=== PATIENT | male | born 1995 | race Caucasian/White ===

== ENCOUNTER 2019-06-19 18:07 | Emergency (ER) | payer MEDICAID ==
--- NOTE | 2019-06-19 18:33 | EDM.PDOCBH ---
ED HPI GENERAL MEDICAL PROBLEM - General Chief Complaint: Drug or Alcohol Abuse Stated Complaint: MEDICAL [facility]IA [facility] Time Seen by Provider: 06/19/19 18:15 Source of Information: Reports: Patient, EMS History Limitations: Reports: No Limitations - History of Present Illness INITIAL COMMENTS - FREE TEXT/NARRATIVE: 23 yo male with a methamphetamine abuse problem and who is apparently homeless and out of money presents via EMS requesting detox for his meth habit/ addiction. Denies use of other drugs. Denies any medical problems. Has been in [facility] lately. Onset: Unknown/Unsure Duration: Chronic, Waxing/Waning Location: Reports: Generalized Quality: Reports: Other (no pain reported) Severity: Moderate Improves with: Reports: Other (drug abstinence) Worsens with: Reports: Other (drug use) Context: Reports: Other (see HPI) Associated Symptoms: Reports: No Other Symptoms Treatments BUN ICER: Reports: Other (see below) (none) - Related Data Allergies Allergy/AdvReac Type Severity Reaction Status Date / Time No Known Allergies Allergy Verified 06/19/19 19:32 Home Meds: Home Meds NK [No Known Home Meds] 06/08/19 [History] Past Medical History - Past Health History Medical/Surgical History: Denies Medical/Surgical History HEENT History: Reports: None Cardiovascular History: Reports: None Psychiatric History: Reports: Addiction, Other (See Below) Social & Family History - Tobacco Use Smoking Status *Q: Heavy Tobacco Smoker Years of Tobacco use: 8 Packs/Tins Daily: 1 - Caffeine Use Caffeine Use: Reports: Coffee - Recreational Drug Use Recreational Drug Use: Yes Recreational Drug Type: Reports: Methamphetamine ED ROS GENERAL - Review of Systems Review Of Systems: See Below Constitutional: Reports: No Symptoms HEENT: Reports: No Symptoms Respiratory: Reports: No Symptoms Cardiovascular: Reports: No Symptoms GI/Abdominal: Reports: No Symptoms Musculoskeletal: Reports: No Symptoms Skin: Reports: No Symptoms Neurological: Reports: No Symptoms Psychiatric: Reports: Other (paranoia at times) ED EXAM, BEHAVIORAL HEALTH - Physical Exam Exam: See Below Exam Limited By: No Limitations General Appearance: Alert, WD/WN, No Apparent Distress Eye Exam: Bilateral Eye: Normal Inspection Ears: Normal External Exam, Normal Canal, Hearing Grossly Normal, Normal TMs Nose: Normal Inspection, No Blood Throat/Mouth: Normal Inspection, Normal Lips, Normal Oropharynx, Normal Voice, No Airway Compromise Head: Atraumatic, Normocephalic Neck: Normal Inspection Respiratory/Chest: No Respiratory Distress, Lungs Clear, Normal Breath Sounds, No Accessory Muscle Use Cardiovascular: Regular Rate, Rhythm, No Edema GI/Abdominal: Normal Bowel Sounds, Soft, Non-Tender, No Distention Back Exam: Normal Inspection. No: CVA Tenderness (R), CVA Tenderness (L) Extremities: Normal Inspection, Normal Range of Motion, Non-Tender, No Pedal Edema Neurological: Alert, Normal Mood/Affect, CN II-XII Intact, Normal Cognition, Normal Gait, No Motor/Sensory Deficits, Oriented x 3 Psychiatric: Alert, Normal Affect, Normal Cognition, Normal Mood, Oriented Skin Exam: Warm, Dry, Intact, Normal color, No rash COURSE, BEHAVIORAL HEALTH COMP - Course Vital Signs: Last Vital Signs Temp 37.1 C 06/19/19 18:15 Pulse 91 06/19/19 18:15 Resp 16 06/19/19 18:15 BP 127/69 06/19/19 18:15 Pulse Ox 97 06/19/19 18:15 Orders, Labs, Meds: Laboratory Tests 06/19/19 Range/Units 19:13 Urine Opiates Screen Negative (NEGATIVE) Ur Oxycodone Screen Negative (NEGATIVE) Urine Methadone Screen Negative (NEGATIVE) Ur Propoxyphene Screen Negative (NEGATIVE) Ur Barbiturates Screen Negative (NEGATIVE) Ur Tricyclics Screen Negative (NEGATIVE) Ur Phencyclidine Scrn Negative (NEGATIVE) Ur Amphetamine Screen Presumptive positive H (NEGATIVE) U Methamphetamines Scrn Presumptive positive H (NEGATIVE) Urine MDMA Screen Negative (NEGATIVE) U Benzodiazepines Scrn Negative (NEGATIVE) U Cocaine Metab Screen Negative (NEGATIVE) U Marijuana (THC) Screen Negative (NEGATIVE) Departure - Departure Time of Disposition: 20:25 Disposition: DC/Tfer to Other 70 Condition: Fair Clinical Impression: Methamphetamine abuse - Discharge Information *PRESCRIPTION DRUG MONITORING PROGRAM REVIEWED*: No *COPY OF PRESCRIPTION DRUG MONITORING REPORT IN PATIENT YURIY: No Instructions: Stimulant Use Disorder-Amphetamines Referrals: PCP,None [Primary Care Provider] - Forms: ED Department Discharge Sepsis Event Note - Evaluation Sepsis Screening Result: No Definite Risk - Focused Exam Vital Signs: Vital Signs Temp Pulse Resp BP Pulse Ox 06/19/19 18:15 37.1 C 91 16 127/69 97 03/30/20 18:14 37.1 C 91 16 127/69 97 Date Exam was Performed: 06/19/19 Time Exam was Performed: 19:40
== END 2019-06-19 20:07 | disposition other institution (70) ==
LOC: JP.ED 18:07
DX: F15.10 Other stimulant abuse, uncomplicated (principal); F17.210 Nicotine dependence, cigarettes, uncomplicated
CPT/HCPCS: 80305-QW; 99284

== ENCOUNTER 2020-08-08 13:39 | Emergency (ER) | payer MEDICAID ==
[2020-08-08] MEDS ORDERED: HYDROmorphone 1 MG/ML Syringe IM ONE (14:31)
--- NOTE | 2020-08-08 14:36 | EDM.PDOC ---
ED HPI GENERAL MEDICAL PROBLEM - General Chief Complaint: Behavioral/Psych Stated Complaint: PERSONAL Time Seen by Provider: 08/08/20 14:25 Source of Information: Reports: Patient. Denies: Old Records History Limitations: Reports: Other (no old records) - History of Present Illness INITIAL COMMENTS - FREE TEXT/NARRATIVE: 24 yo male here after personally locking a paddle lock over his proximal scrotum. Has pain and swelling now of the scrotum. Does not have the villalobos. Admits to use of meth. Is not from here, not sure why he is in the area. Is behaving very erratically. A voice in his head told him to put the paddle lock on himself. Onset: Unknown/Unsure Duration: Hour(s): Location: Reports: Pelvis (scrotum) Quality: Reports: Ache Severity: Moderate Improves with: Reports: None Worsens with: Reports: Other (time) Context: Reports: Other (See HPI) Associated Symptoms: Reports: Other (high on drugs) Treatments DIRECTORY COMPILER: Reports: Other (see below) (none) - Related Data Allergies Allergy/AdvReac Type Severity Reaction Status Date / Time No Known Allergies Allergy Verified 08/08/20 14:10 Home Meds: Home Meds NK [No Known Home Meds] 06/08/19 [History] Past Medical History - Past Health History Medical/Surgical History: Denies Medical/Surgical History HEENT History: Reports: None Cardiovascular History: Reports: None Psychiatric History: Reports: Addiction, Other (See Below) Social & Family History - Tobacco Use Tobacco Use Status *Q: Never Tobacco User - Caffeine Use Caffeine Use: Reports: None - Recreational Drug Use Recreational Drug Use: Yes Recreational Drug Type: Reports: Methamphetamine ED ROS GENERAL - Review of Systems Review Of Systems: Unable To Obtain (due to his mental state) Reason Not Obtained: mentally unstable : Reports: Other (scrotal and testicular pain and swelling) Skin: Reports: Other (some cyanosis of scrotum) Neurological: Reports: No Symptoms Psychiatric: Reports: Anxiety, Other (agitation) ED EXAM, RENAL/ - Physical Exam Exam: See Below Exam Limited By: No Limitations General Appearance: Alert, WD/WN, Mild Distress Eye Exam: Bilateral Eye: Normal Inspection Head: Atraumatic, Normocephalic Neck: Normal Inspection Respiratory/Chest: No Respiratory Distress, Lungs Clear, Normal Breath Sounds, No Accessory Muscle Use Cardiovascular: Regular Rate, Rhythm GI/Abdominal: Soft, Non-Tender (Male) Exam: Scrotal Swelling (and ecchymosis due to the constriction from the paddle lock), Scrotum Tenderness (L), Scrotum Tenderness (R) Extremities: Normal Inspection Neurological: Alert, CN II-XII Intact, Other (very dramatic and loud). No: Normal Cognition Psychiatric: Anxious, Other (agitation) Skin Exam: Warm, Dry, Intact, No Rash, Other (skin over scrotum is cyanotic). No: Wound/Incision Course - Vital Signs Last Recorded V/S: Last Vital Signs Temp 36.8 C 08/08/20 14:11 Pulse 92 08/08/20 14:11 Resp 17 08/08/20 14:11 BP 131/80 08/08/20 14:11 Pulse Ox 98 08/08/20 14:11 - Orders/Labs/Meds Meds: Medications Discontinued Medications Generic Name Dose Route Start Last Admin Trade Name Brian PRN Reason Stop Dose Admin Aripiprazole 5 mg 08/08/20 15:14 08/08/20 15:25 Aripiprazole 10 Mg Tab PO 08/08/20 15:15 5 mg ONETIME ONE Administration Aripiprazole 10 mg 08/08/20 15:27 Aripiprazole 10 Mg Tab PO 08/08/20 15:28 ONETIME ONE Hydromorphone HCl 1.5 mg 08/08/20 14:31 08/08/20 14:38 Hydromorphone 1 Mg/Ml Syringe IM 08/08/20 14:32 1.5 mg ONETIME ONE Administration - Re-Assessments/Exams Free Text/Narrative Re-Assessment/Exam: 08/08/20 15:38 paddle lock removed with wheel cutter by RN. He got Dilaudid 1.5 mg IM for pain relief. Ability 15 mg po was ordered of which he got 5 mg. Eloped after that. Departure - Departure Time of Disposition: 15:35 Disposition: Eloped 07 Condition: Fair Clinical Impression: Methamphetamine use, Chronic mental illness, Scrotal edema - Discharge Information *PRESCRIPTION DRUG MONITORING PROGRAM REVIEWED*: Not Applicable *COPY OF PRESCRIPTION DRUG MONITORING REPORT IN PATIENT YURIY: Not Applicable Referrals: PCP,None [Primary Care Provider] - Forms: ED Department Discharge Sepsis Event Note (ED) - Focused Exam Vital Signs: Vital Signs Temp Pulse Resp BP Pulse Ox 08/08/20 14:11 36.8 C 92 17 131/80 98
[2020-08-08] MEDS ORDERED: ARIPiprazole 10 MG Tab PO ONE ×2 (15:14→15:27)
== END 2020-08-08 15:35 | disposition left against medical advice (07) ==
LOC: JP.ED 13:39
DX: N50.89 Other specified disorders of the male genital organs (principal); F15.90 Other stimulant use, unspecified, uncomplicated; F99 Mental disorder, not otherwise specified
CPT/HCPCS: 96372; 99283; A9270; J1170